=== PATIENT | male | born 1995 | race African-American/Black ===

== ENCOUNTER 2016-05-09 03:53 | Emergency (ER) | payer MEDICAID ==
[~2016-05-09] VITALS: Ht 170.2 cm; Wt 63.5 kg
[2016-05-09 04:10] VITALS: BP 137/81
== END 2016-05-09 10:35 | disposition left against medical advice (07) ==
LOC: ER 03:57
DX: R05 Cough (principal); R09.81 Nasal congestion; Z53.21 Procedure and treatment not carried out due to patient leaving prior to being seen by health care provider

== ENCOUNTER 2016-05-22 12:11 | Emergency (ER) | payer MEDICAID ==
[~2016-05-22] VITALS: Ht 170.2 cm; Wt 63.5 kg
[2016-05-22 12:23] VITALS: BP 140/76
== END 2016-05-22 13:34 | disposition home or self-care (01) ==
LOC: ER 12:15
DX: F41.9 Anxiety disorder, unspecified (principal); F17.210 Nicotine dependence, cigarettes, uncomplicated; F12.10 Cannabis abuse, uncomplicated; R05 Cough

== ENCOUNTER 2016-05-28 13:29 | Emergency (ER) | payer MEDICAID ==
[~2016-05-28] VITALS: Ht 170.2 cm; Wt 64.4 kg
[2016-05-28 13:45] VITALS: BP 133/83
== END 2016-05-28 17:51 | disposition home or self-care (01) ==
LOC: ER 13:31
DX: J20.9 Acute bronchitis, unspecified (principal); F17.210 Nicotine dependence, cigarettes, uncomplicated; F12.10 Cannabis abuse, uncomplicated
CPT/HCPCS: 71020

== ENCOUNTER 2016-06-02 01:15 | Emergency (ER) | payer MEDICAID ==
[~2016-06-02] VITALS: Ht 170.2 cm; Wt 63.5 kg
[2016-06-02 08:09] VITALS: BP 132/72
[2016-06-02] MEDS ORDERED: HYDROcodone-ACET 5/325MG TAB PO ONE (09:00)
== END 2016-06-02 10:19 | disposition home or self-care (01) ==
LOC: ER 01:19
DX: F41.9 Anxiety disorder, unspecified (principal); M54.9 Dorsalgia, unspecified; F17.210 Nicotine dependence, cigarettes, uncomplicated; F12.10 Cannabis abuse, uncomplicated; Z76.0 Encounter for issue of repeat prescription

== ENCOUNTER 2016-06-19 15:52 | Emergency (ER) | payer MEDICAID ==
[~2016-06-19] VITALS: Ht 170.2 cm; Wt 63.5 kg
[2016-06-19 16:56] VITALS: BP 137/91
== END 2016-06-19 17:45 | disposition home or self-care (01) ==
LOC: ER 15:59
DX: J02.9 Acute pharyngitis, unspecified (principal); F17.210 Nicotine dependence, cigarettes, uncomplicated; F12.10 Cannabis abuse, uncomplicated

== ENCOUNTER 2016-06-20 10:12 | Emergency (ER) | payer MEDICAID ==
[~2016-06-20] VITALS: Ht 170.2 cm; Wt 63.5 kg
[2016-06-20 10:17] VITALS: BP 143/102
== END 2016-06-20 11:30 | disposition home or self-care (01) ==
LOC: ER 10:14
DX: Z76.5 Malingerer [conscious simulation] (principal); R05 Cough; F41.9 Anxiety disorder, unspecified; F17.210 Nicotine dependence, cigarettes, uncomplicated; F12.10 Cannabis abuse, uncomplicated

== ENCOUNTER → 2016-06-20 | Emergency (ER) | payer MEDICAID | END | disposition left against medical advice (07) | LOC: ER 01:47 | DX: R09.81 Nasal congestion (principal); R05 Cough; Z53.21 Procedure and treatment not carried out due to patient leaving prior to being seen by health care provider ==

== ENCOUNTER 2016-06-25 13:56 | Emergency (ER) | payer MEDICAID ==
[~2016-06-25] VITALS: Ht 170.2 cm; Wt 63.5 kg
[2016-06-25 14:44] VITALS: BP 134/95
== END 2016-06-25 22:50 | disposition left against medical advice (07) ==
LOC: ER 13:56
DX: R10.10 Upper abdominal pain, unspecified (principal); R11.2 Nausea with vomiting, unspecified; Z53.21 Procedure and treatment not carried out due to patient leaving prior to being seen by health care provider

== ENCOUNTER 2016-06-26 11:01 | Emergency (ER) | payer MEDICAID ==
[~2016-06-26] VITALS: Ht 172.7 cm; Wt 63.5 kg
[2016-06-26 12:45] VITALS: BP 147/79
== END 2016-06-26 13:24 | disposition home or self-care (01) ==
LOC: ER 11:02
DX: M79.642 Pain in left hand (principal); M79.641 Pain in right hand; F17.210 Nicotine dependence, cigarettes, uncomplicated; F12.10 Cannabis abuse, uncomplicated; Z76.5 Malingerer [conscious simulation]; F11.10 Opioid abuse, uncomplicated; F19.10 Other psychoactive substance abuse, uncomplicated
CPT/HCPCS: 73130

== ENCOUNTER 2016-07-02 19:05 | Emergency (ER) | payer MEDICAID ==
[~2016-07-02] VITALS: Ht 172.7 cm; Wt 63.5 kg
[2016-07-02 21:20] VITALS: BP 142/88
== END 2016-07-02 21:22 | disposition home or self-care (01) ==
LOC: ER 19:11
DX: F41.9 Anxiety disorder, unspecified (principal); Z76.0 Encounter for issue of repeat prescription; F17.210 Nicotine dependence, cigarettes, uncomplicated; F12.10 Cannabis abuse, uncomplicated

== ENCOUNTER 2016-07-10 19:31 | Emergency (ER) | payer MEDICAID ==
[~2016-07-10] VITALS: Ht 170.2 cm; Wt 63.5 kg
[2016-07-10 20:00] VITALS: BP 139/85
[2016-07-10 20:41] LABS: Urine RBC None Seen /hpf (0 - 3)
[2016-07-10 21:00] LABS: Hematocrit 40.8 % (41.0-53.0); Hemoglobin 13.6 g/dL (13.5-17.5); Mean Corpuscular Hemoglobin 29.4 pg (28.0-32.0); Mean Corpuscular Hgb Conc. 33.3 g/dL (32.0-36.0); Mean Corpuscular Volume 88.3 fL (80.0-100.0); Mean Platelet Volume 9.1 fL (7.4-10.4); Platelet Count (auto) 170 10^3/uL (140-450); Red Cell Distribution Width 13.2 % (11.6-16.0); SUSPECT VIEW TRANSMISSION; White Blood Cell 5.8 10^3/uL (4.4-10.8)
[2016-07-10 21:00] LABS: Urine Bilirubin Negative (Negative); Urine Blood Negative /uL (Negative); Urine Color Yellow (Yellow); Urine Glucose Normal (Normal); Urine Ketone Negative (Negative); Urine Nitrite Negative (Negative); Urine Urobilinogen Normal (Negative)
[2016-07-10 21:10] LABS: Albumin 4.1 g/dL (3.4-5.0); Calcium 8.5 mg/dL (8.5-10.1); Potassium 3.7 mmol/L (3.5-5.1)
[2016-07-10 21:12] LABS: BUN/Creatinine Ratio 13.2
[2016-07-10 21:14] LABS: Bilirubin, Total 0.8 mg/dL (0.2-1.0); Total Protein 6.8 g/dL (6.4-8.2)
[2016-07-10 21:31] LABS: Metamyelocytes % 0; Myelocytes % 0; Promyelocytes % 0; Reactive Lymphocytes 0
[2016-07-10 21:44] LABS: Large Platelets FEW
[2016-07-10 21:45] LABS: Platelet Estimate Adequa
== END 2016-07-11 03:57 | disposition left against medical advice (07) ==
LOC: ER 19:35
DX: R10.9 Unspecified abdominal pain (principal); H92.03 Otalgia, bilateral; R11.10 Vomiting, unspecified; Z53.21 Procedure and treatment not carried out due to patient leaving prior to being seen by health care provider
CPT/HCPCS: 36415; 80053; 81001; 85007; 85027

== ENCOUNTER 2016-07-21 07:36 | Emergency (ER) | payer MEDICAID ==
[~2016-07-21] VITALS: Ht 170.2 cm; Wt 63.5 kg
[2016-07-21 07:55] VITALS: BP 139/85
== END 2016-07-21 09:11 | disposition home or self-care (01) ==
LOC: ER 07:36
DX: F41.9 Anxiety disorder, unspecified (principal); Z76.0 Encounter for issue of repeat prescription; R05 Cough

== ENCOUNTER 2016-07-22 00:34 | Emergency (ER) | payer MEDICAID ==
[~2016-07-22] VITALS: Ht 170.2 cm; Wt 68.0 kg
[2016-07-22 01:02] VITALS: BP 124/81
== END 2016-07-22 03:30 | disposition left against medical advice (07) ==
LOC: ER 00:35
DX: G43.909 Migraine, unspecified, not intractable, without status migrainosus (principal); Z53.21 Procedure and treatment not carried out due to patient leaving prior to being seen by health care provider

== ENCOUNTER → 2016-07-23 | Emergency (ER) | payer MEDICAID | END | disposition left against medical advice (07) | LOC: ER 00:24 | DX: R51 Headache (principal); Z53.21 Procedure and treatment not carried out due to patient leaving prior to being seen by health care provider ==

== ENCOUNTER 2016-07-27 17:16 | Emergency (ER) | payer MEDICAID ==
[~2016-07-27] VITALS: Ht 170.2 cm; Wt 63.5 kg
[2016-07-27 17:29] VITALS: BP 126/88
== END 2016-07-27 19:25 | disposition left against medical advice (07) ==
LOC: ER 17:22
DX: G43.909 Migraine, unspecified, not intractable, without status migrainosus (principal); Z53.21 Procedure and treatment not carried out due to patient leaving prior to being seen by health care provider

== ENCOUNTER 2016-07-28 13:53 | Emergency (ER) | payer MEDICAID ==
[~2016-07-28] VITALS: Ht 170.2 cm; Wt 63.5 kg
[2016-07-28 18:48] VITALS: BP 121/81
[2016-07-28] MEDS ORDERED: HYDROcodone-ACET 5/325MG TAB PO ONE (19:00)
[2016-07-28] MEDS ORDERED: ONDANSETRON ODT 4 MG TAB PO ONE (19:00)
== END 2016-07-28 19:06 | disposition home or self-care (01) ==
LOC: ER 13:53
DX: R51 Headache (principal); F17.210 Nicotine dependence, cigarettes, uncomplicated; F12.10 Cannabis abuse, uncomplicated; R42 Dizziness and giddiness; R53.1 Weakness
CPT/HCPCS: 99283; Q0162

== ENCOUNTER 2016-08-11 18:07 | Emergency (ER) | payer MEDICAID ==
[~2016-08-11] VITALS: Ht 170.2 cm; Wt 65.8 kg
[2016-08-11 19:58] VITALS: BP 116/77
== END 2016-08-11 21:09 | disposition home or self-care (01) ==
LOC: ER 18:11
DX: J42 Unspecified chronic bronchitis (principal); F17.210 Nicotine dependence, cigarettes, uncomplicated; F12.10 Cannabis abuse, uncomplicated

== ENCOUNTER → 2016-08-12 | Emergency (ER) | payer MEDICAID | END | disposition left against medical advice (07) | LOC: ER 22:38 | DX: R05 Cough (principal); Z53.21 Procedure and treatment not carried out due to patient leaving prior to being seen by health care provider ==

== ENCOUNTER 2016-08-13 01:58 | Emergency (ER) | payer MEDICAID | END 2016-08-13 02:09 | disposition left against medical advice (07) | LOC: ER 02:04 | DX: R05 Cough (principal); Z53.21 Procedure and treatment not carried out due to patient leaving prior to being seen by health care provider ==

== ENCOUNTER 2016-08-26 01:43 | Emergency (ER) | payer MEDICAID ==
[~2016-08-26] VITALS: Ht 170.2 cm; Wt 65.8 kg
[2016-08-26 03:23] VITALS: BP 115/69
== END 2016-08-26 03:33 | disposition home or self-care (01) ==
LOC: ER 01:44
DX: J20.9 Acute bronchitis, unspecified (principal); F17.210 Nicotine dependence, cigarettes, uncomplicated; F12.10 Cannabis abuse, uncomplicated; Z72.89 Other problems related to lifestyle

== ENCOUNTER → 2016-08-28 | Emergency (ER) | payer MEDICAID | END | disposition left against medical advice (07) | LOC: ER 01:18 | DX: R10.9 Unspecified abdominal pain (principal); Z53.21 Procedure and treatment not carried out due to patient leaving prior to being seen by health care provider ==

== ENCOUNTER 2016-09-01 01:33 | Emergency (ER) | payer MEDICAID ==
[~2016-09-01] VITALS: Ht 170.2 cm; Wt 54.4 kg
[2016-09-01 01:55] VITALS: BP 111/74
== END 2016-09-01 01:58 | disposition left against medical advice (07) ==
LOC: ER 01:41

== ENCOUNTER 2016-09-15 00:23 | Emergency (ER) | payer MEDICAID ==
[~2016-09-15] VITALS: Ht 170.2 cm; Wt 65.8 kg
[2016-09-15 01:29] LABS: Basophils # (auto) 0 uL; Basophils % (auto) 0.6 % (0.0-2.0); Eosinophils # (auto) 0.1 uL; Eosinophils % (auto) 1.3 % (0.0-7.0); Hematocrit 40.3 % (41.0-53.0); Hemoglobin 13.8 g/dL (13.5-17.5); Lymphocytes # (auto) 2.5 uL; Lymphocytes % (auto) 47.8 % (10.0-50.0); Mean Corpuscular Hemoglobin 29.8 pg (28.0-32.0); Mean Corpuscular Hgb Conc. 34.2 g/dL (32.0-36.0); Mean Corpuscular Volume 87.1 fL (80.0-100.0); Mean Platelet Volume 9.5 fL (7.4-10.4); Monocytes # (auto) 0.4 uL; Monocytes % (auto) 8.1 % (0.0-12.0); Neutrophils # (auto) 2.2 uL; Neutrophils % (auto) 42.2 % (37.0-80.0); Platelet Count (auto) 174 10^3/uL (140-450); SUSPECT VIEW TRANSMISSION; White Blood Cell 5.2 10^3/uL (4.4-10.8)
[2016-09-15 01:40] LABS: Albumin 4.3 g/dL (3.4-5.0); Anion Gap 7 (5-15); Aspartate Aminotransferase 16 U/L (15-37); BUN/Creatinine Ratio 9.5; Blood Urea Nitrogen 11 mg/dL (7-18); Calcium 8.2 mg/dL (8.5-10.1); Carbon Dioxide 27 mmol/L (21-32); Chloride 112 mmol/L (98-107); GFR African American 101 mL/min; GFR Non-African American 84 mL/min; Glucose 112 mg/dL (74-106); Magnesium 2.1 mg/dL (1.6-2.6); Potassium 3.7 mmol/L (3.5-5.1); Sodium 146 mmol/L (136-145)
[2016-09-15 01:43] LABS: Alkaline Phosphatase 60 U/L (45-117); Bilirubin, Total 1.6 mg/dL (0.2-1.0); Total Protein 6.7 g/dL (6.4-8.2)
[2016-09-15 01:50] LABS: Acetaminophen < 2.0 ug/mL (10-30)
[2016-09-15 01:52] LABS: Salicylate < 0.2 mg/dL (2.8-20.0)
[2016-09-15 02:17] LABS: Urine RBC None Seen /hpf (0 - 3)
[2016-09-15 02:19] VITALS: BP 127/77
[2016-09-15 02:25] LABS: Urine Bilirubin Negative (Negative); Urine Blood Negative /uL (Negative); Urine Color Yellow (Yellow); Urine Glucose Normal (Normal); Urine Ketone Negative (Negative); Urine Nitrite Negative (Negative); Urine pH 7.5 (5.0-8.0)
[2016-09-15] MEDS ORDERED: LORazepam 0.5 MG TAB PO ONE (04:00)
[2016-09-15] MEDS ORDERED: ALUM & MAG HYDROX-SIMETH LIQ(MAALOX) 30 ML PO ONE (04:00)
== END 2016-09-15 05:11 | disposition home or self-care (01) ==
LOC: ER 00:23
DX: K29.00 Acute gastritis without bleeding (principal); F12.10 Cannabis abuse, uncomplicated; F17.210 Nicotine dependence, cigarettes, uncomplicated; F41.9 Anxiety disorder, unspecified
CPT/HCPCS: 36415; 80053; 80307; 80320; 80329; 81001; 83735; 85025

== ENCOUNTER 2016-09-24 18:49 | Emergency (ER) | payer MEDICAID ==
[~2016-09-24] VITALS: Ht 170.2 cm; Wt 65.8 kg
[2016-09-24 19:41] VITALS: BP 141/74
== END 2016-09-24 19:57 | disposition left against medical advice (07) ==
LOC: ER 18:54
DX: F41.9 Anxiety disorder, unspecified (principal); Z76.0 Encounter for issue of repeat prescription

== ENCOUNTER 2016-10-05 02:59 | Emergency (ER) | payer MEDICAID ==
[~2016-10-05] VITALS: Ht 170.2 cm; Wt 65.8 kg
[2016-10-05 03:20] VITALS: BP 149/90
== END 2016-10-05 06:03 | disposition home or self-care (01) ==
LOC: ER 02:59
DX: R05 Cough (principal); R07.0 Pain in throat; R06.02 Shortness of breath; F11.10 Opioid abuse, uncomplicated; F17.210 Nicotine dependence, cigarettes, uncomplicated; F12.10 Cannabis abuse, uncomplicated

== ENCOUNTER 2016-10-22 18:31 | Emergency (ER) | payer MEDICAID ==
[~2016-10-22] VITALS: Ht 170.2 cm; Wt 63.5 kg
[2016-10-22 19:35] VITALS: BP 125/83
== END 2016-10-22 20:21 | disposition home or self-care (01) ==
LOC: ER 18:42
DX: J42 Unspecified chronic bronchitis (principal); F17.210 Nicotine dependence, cigarettes, uncomplicated; F12.10 Cannabis abuse, uncomplicated

== ENCOUNTER 2016-10-23 16:15 | Emergency (ER) | payer MEDICAID ==
[~2016-10-23] VITALS: Ht 170.2 cm; Wt 63.5 kg
[2016-10-23 16:36] VITALS: BP 132/72
== END 2016-10-23 17:32 | disposition left against medical advice (07) ==
LOC: ER 16:19
DX: F41.9 Anxiety disorder, unspecified (principal); Z53.21 Procedure and treatment not carried out due to patient leaving prior to being seen by health care provider

== ENCOUNTER 2016-11-08 00:06 | Emergency (ER) | payer MEDICAID | END 2016-11-08 00:30 | disposition left against medical advice (07) | LOC: ER 00:06 | DX: R05 Cough (principal); Z53.21 Procedure and treatment not carried out due to patient leaving prior to being seen by health care provider ==

== ENCOUNTER 2016-11-11 17:25 | Emergency (ER) | payer MEDICAID ==
[~2016-11-11] VITALS: Ht 170.2 cm; Wt 63.5 kg
[2016-11-11 18:16] VITALS: BP 131/77
== END 2016-11-11 22:14 | disposition left against medical advice (07) ==
LOC: ER 17:27
DX: F41.9 Anxiety disorder, unspecified (principal); Z76.0 Encounter for issue of repeat prescription; Z53.21 Procedure and treatment not carried out due to patient leaving prior to being seen by health care provider

== ENCOUNTER 2016-11-13 00:04 | Emergency (ER) | payer MEDICAID ==
[~2016-11-13] VITALS: Ht 170.2 cm; Wt 65.8 kg
[2016-11-13 00:11] VITALS: BP 121/90
== END 2016-11-13 01:13 | disposition home or self-care (01) ==
LOC: ER 00:09
DX: F41.9 Anxiety disorder, unspecified (principal); T65.91XA Toxic effect of unspecified substance, accidental (unintentional), initial encounter; F17.210 Nicotine dependence, cigarettes, uncomplicated; F12.10 Cannabis abuse, uncomplicated; Y92.89 Other specified places as the place of occurrence of the external cause

== ENCOUNTER 2016-11-15 08:51 | Emergency (ER) | payer MEDICAID ==
[~2016-11-15] VITALS: Ht 170.2 cm; Wt 65.8 kg
[2016-11-15 09:25] VITALS: BP 129/84
== END 2016-11-15 09:38 | disposition home or self-care (01) ==
LOC: ER 08:51
DX: F41.9 Anxiety disorder, unspecified (principal); R05 Cough; F17.210 Nicotine dependence, cigarettes, uncomplicated; F12.10 Cannabis abuse, uncomplicated; Z76.0 Encounter for issue of repeat prescription

== ENCOUNTER 2016-11-16 05:23 | Emergency (ER) | payer MEDICAID ==
[~2016-11-16] VITALS: Ht 170.2 cm; Wt 65.3 kg
[2016-11-16 05:49] VITALS: BP 142/80
== END 2016-11-16 08:22 | disposition home or self-care (01) ==
LOC: ER 05:23
DX: R05 Cough (principal); F41.9 Anxiety disorder, unspecified; F12.10 Cannabis abuse, uncomplicated; F17.210 Nicotine dependence, cigarettes, uncomplicated

== ENCOUNTER 2016-11-16 23:46 | Emergency (ER) | payer MEDICAID ==
[~2016-11-16] VITALS: Ht 170.2 cm; Wt 63.5 kg
[2016-11-17] VITALS: BP 125/71
== END 2016-11-17 00:42 | disposition left against medical advice (07) ==
LOC: ER 23:46
DX: R05 Cough (principal); F17.210 Nicotine dependence, cigarettes, uncomplicated; F12.10 Cannabis abuse, uncomplicated

== ENCOUNTER 2016-11-17 20:27 | Emergency (ER) | payer MEDICAID ==
[~2016-11-17] VITALS: Ht 170.2 cm; Wt 65.8 kg
[2016-11-17 22:10] VITALS: BP 130/74
== END 2016-11-17 23:17 | disposition home or self-care (01) ==
LOC: ER 20:39
DX: J42 Unspecified chronic bronchitis (principal); Z76.5 Malingerer [conscious simulation]; F17.210 Nicotine dependence, cigarettes, uncomplicated; F12.10 Cannabis abuse, uncomplicated

== ENCOUNTER 2016-12-04 12:34 | Emergency (ER) | payer MEDICAID ==
[~2016-12-04] VITALS: Ht 170.2 cm; Wt 65.8 kg
[2016-12-04 14:35] VITALS: BP 140/71
== END 2016-12-04 14:44 | disposition home or self-care (01) ==
LOC: ER 12:38
DX: F41.9 Anxiety disorder, unspecified (principal); Z76.0 Encounter for issue of repeat prescription; F17.210 Nicotine dependence, cigarettes, uncomplicated; F12.10 Cannabis abuse, uncomplicated

== ENCOUNTER 2016-12-10 15:33 | Emergency (ER) | payer MEDICAID ==
[~2016-12-10] VITALS: Ht 170.2 cm; Wt 65.8 kg
[2016-12-10 16:26] VITALS: BP 140/74
== END 2016-12-10 17:19 | disposition home or self-care (01) ==
LOC: ER 15:39
DX: K21.9 Gastro-esophageal reflux disease without esophagitis (principal); F12.10 Cannabis abuse, uncomplicated; F17.210 Nicotine dependence, cigarettes, uncomplicated; Z76.0 Encounter for issue of repeat prescription

== ENCOUNTER 2016-12-13 07:21 | Emergency (ER) | payer MEDICAID ==
[~2016-12-13] VITALS: Ht 170.2 cm; Wt 63.5 kg
[2016-12-13 08:25] VITALS: BP 140/83
== END 2016-12-13 08:37 | disposition home or self-care (01) ==
LOC: ER 07:21
DX: R05 Cough (principal); F19.10 Other psychoactive substance abuse, uncomplicated; R07.9 Chest pain, unspecified; J40 Bronchitis, not specified as acute or chronic; K21.9 Gastro-esophageal reflux disease without esophagitis; F17.210 Nicotine dependence, cigarettes, uncomplicated; F12.10 Cannabis abuse, uncomplicated

== ENCOUNTER 2016-12-27 16:30 | Emergency (ER) | payer MEDICAID ==
[~2016-12-27] VITALS: Ht 170.2 cm; Wt 63.5 kg
[2016-12-27 16:47] VITALS: BP 142/91
[2016-12-27 17:44] LABS: Basophils # (auto) 0.1 uL; Basophils % (auto) 1.3 % (0.0-2.0); CONDITION Y; Eosinophils # (auto) 0.1 uL; Eosinophils % (auto) 1.2 % (0.0-7.0); Hematocrit 44.8 % (41.0-53.0); Hemoglobin 15.2 g/dL (13.5-17.5); Lymphocytes # (auto) 2.2 uL; Lymphocytes % (auto) 46.9 % (10.0-50.0); Mean Corpuscular Hemoglobin 29.8 pg (28.0-32.0); Mean Corpuscular Hgb Conc. 33.9 g/dL (32.0-36.0); Mean Corpuscular Volume 87.8 fL (80.0-100.0); Mean Platelet Volume 9.1 fL (7.4-10.4); Monocytes # (auto) 0.4 uL; Monocytes % (auto) 8.1 % (0.0-12.0); Neutrophils % (auto) 42.5 % (37.0-80.0); Platelet Count (auto) 194 10^3/uL (140-450); Red Cell Distribution Width 12.6 % (11.6-16.0); SUSPECT SEE PRINTOUT; White Blood Cell 4.7 10^3/uL (4.4-10.8)
[2016-12-27 17:58] LABS: Albumin 4.4 g/dL (3.4-5.0); BUN/Creatinine Ratio 10.6; Calcium 8.9 mg/dL (8.5-10.1); Potassium 3.6 mmol/L (3.5-5.1)
[2016-12-27 18:01] LABS: Bilirubin, Total 1.3 mg/dL (0.2-1.0); Total Protein 7.6 g/dL (6.4-8.2)
== END 2016-12-27 22:48 | disposition left against medical advice (07) ==
LOC: ER 16:35
DX: R11.2 Nausea with vomiting, unspecified (principal); Z53.21 Procedure and treatment not carried out due to patient leaving prior to being seen by health care provider
CPT/HCPCS: 36415; 80053; 85025

== ENCOUNTER 2017-02-08 22:48 | Emergency (ER) | payer MEDICAID ==
[~2017-02-08] VITALS: Ht 170.2 cm; Wt 63.5 kg
[2017-02-08 23:05] VITALS: BP 132/71
== END 2017-02-09 01:30 | disposition left against medical advice (07) ==
LOC: ER 22:57
DX: R05 Cough (principal); Z53.21 Procedure and treatment not carried out due to patient leaving prior to being seen by health care provider

== ENCOUNTER 2017-02-18 18:51 | Emergency (ER) | payer MEDICAID ==
[~2017-02-18] VITALS: Ht 170.2 cm; Wt 65.8 kg
[2017-02-18 19:05] VITALS: BP 131/69
== END 2017-02-19 03:33 | disposition left against medical advice (07) ==
LOC: ER 18:59
DX: H92.09 Otalgia, unspecified ear (principal); Z53.21 Procedure and treatment not carried out due to patient leaving prior to being seen by health care provider

== ENCOUNTER 2017-02-19 13:10 | Emergency (ER) | payer MEDICAID ==
[~2017-02-19] VITALS: Ht 170.2 cm; Wt 65.8 kg
[2017-02-19 14:38] VITALS: BP 135/75
== END 2017-02-19 14:47 | disposition home or self-care (01) ==
LOC: ER 13:12
DX: H66.91 Otitis media, unspecified, right ear (principal); K21.9 Gastro-esophageal reflux disease without esophagitis; F17.210 Nicotine dependence, cigarettes, uncomplicated; F12.10 Cannabis abuse, uncomplicated

== ENCOUNTER 2017-02-27 04:06 | Emergency (ER) | payer MEDICAID ==
[2017-02-27 04:16] VITALS: BP 159/96
== END 2017-02-27 06:52 | disposition home or self-care (01) ==
LOC: ER 04:06
DX: H66.91 Otitis media, unspecified, right ear (principal); F17.210 Nicotine dependence, cigarettes, uncomplicated; K21.9 Gastro-esophageal reflux disease without esophagitis

== ENCOUNTER 2017-03-16 16:40 | Emergency (ER) | payer MEDICAID ==
[~2017-03-16] VITALS: Ht 170.2 cm; Wt 65.8 kg
[2017-03-16 19:00] VITALS: BP 135/86
== END 2017-03-16 19:28 | disposition home or self-care (01) ==
LOC: ER 16:41
DX: J06.9 Acute upper respiratory infection, unspecified (principal); K21.9 Gastro-esophageal reflux disease without esophagitis; J45.909 Unspecified asthma, uncomplicated; F17.210 Nicotine dependence, cigarettes, uncomplicated

== ENCOUNTER 2017-03-24 14:02 | Emergency (ER) | payer MEDICAID ==
[~2017-03-24] VITALS: Ht 170.2 cm; Wt 65.8 kg
[2017-03-24 14:34] VITALS: BP 141/92
== END 2017-03-24 14:50 | disposition home or self-care (01) ==
LOC: ER 14:02
DX: H66.92 Otitis media, unspecified, left ear (principal); R05 Cough; K21.9 Gastro-esophageal reflux disease without esophagitis; F17.210 Nicotine dependence, cigarettes, uncomplicated

== ENCOUNTER 2017-03-26 21:19 | Emergency (ER) | payer MEDICAID ==
[~2017-03-26] VITALS: Ht 170.2 cm; Wt 64.4 kg
[2017-03-27 00:04] VITALS: BP 128/79
[2017-03-27] MEDS ORDERED: LIDOCAINE 1% HCL (LOCAL ANESTH.) INJ 20ML MDV ONE (01:26)
[2017-03-27] MEDS ORDERED: HYDROcodone-ACET 5/325MG TAB PO ONE (01:45)
[2017-03-27] MEDS ORDERED: LIDOCAINE 1% HCL (LOCAL ANESTH.) INJ 20ML MDV IJ ONE (01:45)
== END 2017-03-27 01:55 | disposition home or self-care (01) ==
LOC: ER 21:19
DX: S60.032A Contusion of left middle finger without damage to nail, initial encounter (principal); L03.012 Cellulitis of left finger; F17.210 Nicotine dependence, cigarettes, uncomplicated; F12.10 Cannabis abuse, uncomplicated; K21.9 Gastro-esophageal reflux disease without esophagitis; W23.0XXA Caught, crushed, jammed, or pinched between moving objects, initial encounter; Y93.89 Activity, other specified; Y99.8 Other external cause status; Y92.89 Other specified places as the place of occurrence of the external cause
CPT/HCPCS: 10060; 73140; 99284; J2001

== ENCOUNTER 2017-03-27 07:22 | Emergency (ER) | payer MEDICAID ==
[~2017-03-27] VITALS: Ht 170.2 cm; Wt 65.8 kg
[2017-03-27 08:02] VITALS: BP 138/100
== END 2017-03-27 08:25 | disposition home or self-care (01) ==
LOC: ER 07:22
DX: R05 Cough (principal); F17.210 Nicotine dependence, cigarettes, uncomplicated; F12.10 Cannabis abuse, uncomplicated; K21.9 Gastro-esophageal reflux disease without esophagitis

== ENCOUNTER 2017-03-28 12:15 | Emergency (ER) | payer MEDICAID ==
[~2017-03-28] VITALS: Ht 170.2 cm; Wt 65.8 kg
[2017-03-28 13:00] VITALS: BP 144/81
== END 2017-03-28 13:42 | disposition home or self-care (01) ==
LOC: ER 12:15
DX: R05 Cough (principal); F11.10 Opioid abuse, uncomplicated; H92.01 Otalgia, right ear; F17.210 Nicotine dependence, cigarettes, uncomplicated; K21.9 Gastro-esophageal reflux disease without esophagitis

== ENCOUNTER 2017-04-10 13:39 | Emergency (ER) | payer MEDICAID ==
[~2017-04-10] VITALS: Ht 170.2 cm; Wt 63.5 kg
[2017-04-10 14:04] VITALS: BP 122/80
== END 2017-04-10 14:30 | disposition home or self-care (01) ==
LOC: ER 13:39
DX: J02.9 Acute pharyngitis, unspecified (principal); Z76.5 Malingerer [conscious simulation]; K21.9 Gastro-esophageal reflux disease without esophagitis; F17.210 Nicotine dependence, cigarettes, uncomplicated

== ENCOUNTER 2017-06-08 10:37 | Emergency (ER) | payer MEDICAID ==
[~2017-06-08] VITALS: Ht 170.2 cm; Wt 62.1 kg
[2017-06-08 10:41] VITALS: BP 137/94
== END 2017-06-08 12:04 | disposition left against medical advice (07) ==
LOC: ER 10:37
DX: S60.051A Contusion of right little finger without damage to nail, initial encounter (principal); F17.210 Nicotine dependence, cigarettes, uncomplicated; K21.9 Gastro-esophageal reflux disease without esophagitis; X58.XXXA Exposure to other specified factors, initial encounter; Y93.67 Activity, basketball; Y92.89 Other specified places as the place of occurrence of the external cause; Y99.8 Other external cause status

== ENCOUNTER 2017-06-21 01:43 | Emergency (ER) | payer MEDICAID ==
[~2017-06-21] VITALS: Ht 170.2 cm; Wt 63.5 kg
[2017-06-21] MEDS ORDERED: MORPHINE SULFATE 4 MG/ML SYR/VIAL IV ONE (02:15)
[2017-06-21] MEDS ORDERED: ASPirin 81 mg TAB PO ONE (02:15)
[2017-06-21] MEDS ORDERED: NITROGLYCERIN 2% OINT 1GM PKG TD ONE (02:15)
[2017-06-21 02:38] LABS: Basophils # (auto) 0.1 uL; Basophils % (auto) 1.2 % (0.0-2.0); Eosinophils # (auto) 0.1 uL; Eosinophils % (auto) 1.1 % (0.0-7.0); Hematocrit 41.7 % (41.0-53.0); Hemoglobin 14.4 g/dL (13.5-17.5); Lymphocytes % (auto) 40.6 % (10.0-50.0); Mean Corpuscular Hemoglobin 29.6 pg (28.0-32.0); Mean Corpuscular Hgb Conc. 34.5 g/dL (32.0-36.0); Mean Corpuscular Volume 85.8 fL (80.0-100.0); Monocytes # (auto) 0.5 uL; Monocytes % (auto) 9.4 % (0.0-12.0); Neutrophils # (auto) 2.4 uL; Neutrophils % (auto) 47.7 % (37.0-80.0); Nucleated Red Blood Cells % 0.1 %; Platelet Count (auto) 166 10^3/uL (140-450); Red Blood Cells 4.86 10^6/uL (4.5-5.90)
[2017-06-21 02:44] LABS: Alanine Aminotransferase 32 U/L (16-61); Anion Gap 8 (5-15); Aspartate Aminotransferase 19 U/L (15-37); BUN/Creatinine Ratio 11.5; Blood Urea Nitrogen 14 mg/dL (7-18); Calcium 8.9 mg/dL (8.5-10.1); Carbon Dioxide 26 mmol/L (21-32); Chloride 108 mmol/L (98-107); GFR African American 96 mL/min; GFR Non-African American 79 mL/min; Glucose 85 mg/dL (74-106); Potassium 3.6 mmol/L (3.5-5.1); Sodium 142 mmol/L (136-145)
[2017-06-21 02:49] LABS: Alkaline Phosphatase 54 U/L (45-117); Bilirubin, Total 1.4 mg/dL (0.2-1.0); Total Protein 6.8 g/dL (6.4-8.2)
[2017-06-21] MEDS ORDERED: PROMETHAZINE HCL 25 MG/ML 1ML IV ONE (03:00)
[2017-06-21 03:32] VITALS: BP 132/78
== END 2017-06-21 03:31 | disposition home or self-care (01) ==
LOC: ER 01:43
DX: R07.89 Other chest pain (principal); F41.9 Anxiety disorder, unspecified; K21.9 Gastro-esophageal reflux disease without esophagitis; F17.210 Nicotine dependence, cigarettes, uncomplicated
CPT/HCPCS: 36415; 71045; 80053; 84484; 85025; 93005; 96374; 99285; J2550

== ENCOUNTER 2017-07-29 11:10 | Emergency (ER) | payer MEDICAID ==
[~2017-07-29] VITALS: Ht 170.2 cm; Wt 63.5 kg
[2017-07-29 13:14] VITALS: BP 141/96
== END 2017-07-29 14:31 | disposition home or self-care (01) ==
LOC: ER 11:10
DX: J20.9 Acute bronchitis, unspecified (principal); F41.9 Anxiety disorder, unspecified; K21.9 Gastro-esophageal reflux disease without esophagitis; F17.210 Nicotine dependence, cigarettes, uncomplicated; F12.10 Cannabis abuse, uncomplicated

== ENCOUNTER 2017-08-21 08:18 | Emergency (ER) | payer MEDICAID ==
[~2017-08-21] VITALS: Ht 170.2 cm; Wt 63.5 kg
[2017-08-21 08:32] VITALS: BP 132/82
== END 2017-08-21 09:22 | disposition home or self-care (01) ==
LOC: ER 08:18
DX: J03.90 Acute tonsillitis, unspecified (principal); K21.9 Gastro-esophageal reflux disease without esophagitis; F17.210 Nicotine dependence, cigarettes, uncomplicated; F12.10 Cannabis abuse, uncomplicated

== ENCOUNTER 2017-08-23 10:04 | Emergency (ER) | payer MEDICAID ==
[~2017-08-23] VITALS: Ht 170.2 cm; Wt 63.5 kg
[2017-08-23 10:56] VITALS: BP 128/88
[2017-08-23] MEDS ORDERED: LIDOCAINE 1% (LOCAL ANESTH.) PF 5ml SDV IJ ONE (11:45)
[2017-08-23] MEDS ORDERED: cefTRIAXone SOD 1,000 MG VL IM ONE (11:45)
== END 2017-08-23 12:07 | disposition home or self-care (01) ==
LOC: ER 10:04
DX: J02.9 Acute pharyngitis, unspecified (principal); K21.9 Gastro-esophageal reflux disease without esophagitis; F17.210 Nicotine dependence, cigarettes, uncomplicated; F12.10 Cannabis abuse, uncomplicated
CPT/HCPCS: 99283; J0696

== ENCOUNTER 2017-08-26 14:45 | Emergency (ER) | payer MEDICAID ==
[~2017-08-26] VITALS: Ht 170.2 cm; Wt 63.5 kg
[2017-08-26 18:13] VITALS: BP 130/80
== END 2017-08-26 22:36 | disposition left against medical advice (07) ==
LOC: ER 14:45
DX: J02.9 Acute pharyngitis, unspecified (principal); Z53.21 Procedure and treatment not carried out due to patient leaving prior to being seen by health care provider

== ENCOUNTER → 2017-09-05 | Emergency (ER) | payer MEDICAID | END | disposition left against medical advice (07) | LOC: ER 13:00 | DX: J02.9 Acute pharyngitis, unspecified (principal); Z53.21 Procedure and treatment not carried out due to patient leaving prior to being seen by health care provider ==

== ENCOUNTER 2017-09-06 14:13 | Emergency (ER) | payer MEDICAID ==
[~2017-09-06] VITALS: Ht 170.2 cm; Wt 63.5 kg
[2017-09-06 14:30] VITALS: BP 137/83
== END 2017-09-07 00:18 | disposition left against medical advice (07) ==
LOC: ER 14:13
DX: J02.9 Acute pharyngitis, unspecified (principal); Z53.21 Procedure and treatment not carried out due to patient leaving prior to being seen by health care provider

== ENCOUNTER 2017-09-25 14:27 | Emergency (ER) | payer MEDICAID ==
[~2017-09-25] VITALS: Ht 170.2 cm; Wt 63.5 kg
[2017-09-25 14:36] VITALS: BP 164/89
== END 2017-09-25 17:44 | disposition left against medical advice (07) ==
LOC: ER 14:33
DX: S62.665A Nondisplaced fracture of distal phalanx of left ring finger, initial encounter for closed fracture (principal); K21.9 Gastro-esophageal reflux disease without esophagitis; F17.210 Nicotine dependence, cigarettes, uncomplicated; Y04.0XXA Assault by unarmed brawl or fight, initial encounter; Y93.89 Activity, other specified; Y99.8 Other external cause status; Y92.89 Other specified places as the place of occurrence of the external cause
CPT/HCPCS: 29130; 73140

== ENCOUNTER 2017-10-31 14:29 | Emergency (ER) | payer MEDICAID ==
[~2017-10-31] VITALS: Ht 170.2 cm; Wt 63.5 kg
[2017-10-31 14:53] VITALS: BP 119/77
[2017-10-31] MEDS ORDERED: ALPRAZolam 0.5 MG TAB PO ONE (15:00)
== END 2017-10-31 15:17 | disposition home or self-care (01) ==
LOC: ER 14:39
DX: H92.03 Otalgia, bilateral (principal); F41.9 Anxiety disorder, unspecified; K21.9 Gastro-esophageal reflux disease without esophagitis; F17.210 Nicotine dependence, cigarettes, uncomplicated; F12.10 Cannabis abuse, uncomplicated

== ENCOUNTER 2017-11-02 11:40 | Emergency (ER) | payer MEDICAID ==
[~2017-11-02] VITALS: Ht 170.2 cm; Wt 63.5 kg
[2017-11-02 11:44] VITALS: BP 148/91
== END 2017-11-02 12:11 | disposition left against medical advice (07) ==
LOC: ER 11:40
DX: G89.29 Other chronic pain (principal); H92.03 Otalgia, bilateral; K21.9 Gastro-esophageal reflux disease without esophagitis; F17.210 Nicotine dependence, cigarettes, uncomplicated

== ENCOUNTER 2017-11-05 01:05 | Emergency (ER) | payer MEDICAID ==
[~2017-11-05] VITALS: Ht 170.2 cm; Wt 63.5 kg
[2017-11-05 01:15] VITALS: BP 134/82
== END 2017-11-05 03:45 | disposition left against medical advice (07) ==
LOC: ER 01:05
DX: H92.09 Otalgia, unspecified ear (principal); Z53.21 Procedure and treatment not carried out due to patient leaving prior to being seen by health care provider

== ENCOUNTER 2017-11-05 12:23 | Emergency (ER) | payer MEDICAID ==
[~2017-11-05] VITALS: Ht 170.2 cm; Wt 55.3 kg
[2017-11-05 12:32] VITALS: BP 149/104
== END 2017-11-05 13:26 | disposition left against medical advice (07) ==
LOC: ER 12:23
DX: F41.9 Anxiety disorder, unspecified (principal); Z53.21 Procedure and treatment not carried out due to patient leaving prior to being seen by health care provider

== ENCOUNTER 2017-11-06 06:04 | Emergency (ER) | payer MEDICAID ==
[~2017-11-06] VITALS: Ht 170.2 cm; Wt 63.5 kg
[2017-11-06 06:21] VITALS: BP 159/91
[2017-11-06] MEDS ORDERED: LORazepam 0.5 MG TAB PO ONE (07:15)
== END 2017-11-06 07:33 | disposition home or self-care (01) ==
LOC: ER 06:15
DX: F41.9 Anxiety disorder, unspecified (principal); J02.9 Acute pharyngitis, unspecified; K21.9 Gastro-esophageal reflux disease without esophagitis; F17.210 Nicotine dependence, cigarettes, uncomplicated; F12.10 Cannabis abuse, uncomplicated

== ENCOUNTER 2017-11-07 23:53 | Emergency (ER) | payer MEDICAID ==
[~2017-11-07] VITALS: Ht 170.2 cm; Wt 68.0 kg
[2017-11-08 03:53] VITALS: BP 116/68
== END 2017-11-08 05:24 | disposition left against medical advice (07) ==
LOC: ER 23:56
DX: F41.9 Anxiety disorder, unspecified (principal); Z53.21 Procedure and treatment not carried out due to patient leaving prior to being seen by health care provider

== ENCOUNTER 2018-01-13 22:12 | Emergency (ER) | payer MEDICAID ==
[~2018-01-13] VITALS: Ht 170.2 cm; Wt 63.6 kg
[2018-01-13 22:41] VITALS: BP 147/87
== END 2018-01-13 22:49 | disposition left against medical advice (07) ==
LOC: ER 22:17
DX: R51 Headache (principal); Z53.21 Procedure and treatment not carried out due to patient leaving prior to being seen by health care provider

== ENCOUNTER 2018-01-14 01:18 | Emergency (ER) | payer MEDICAID ==
[~2018-01-14] VITALS: Ht 170.2 cm; Wt 63.5 kg
[2018-01-14 01:49] VITALS: BP 162/86
== END 2018-01-14 06:31 | disposition left against medical advice (07) ==
LOC: ER 01:18
DX: R06.02 Shortness of breath (principal); Z53.21 Procedure and treatment not carried out due to patient leaving prior to being seen by health care provider

== ENCOUNTER 2019-03-05 08:58 | Emergency (ER) | payer SELFPAY ==
[~2019-03-05] VITALS: Ht 170.2 cm; Wt 63.5 kg
[2019-03-05 09:39] VITALS: BP 149/93
== END 2019-03-05 14:10 | disposition home or self-care (01) ==
LOC: ER 08:58
DX: R05 Cough (principal); R11.0 Nausea; K21.9 Gastro-esophageal reflux disease without esophagitis

== ENCOUNTER 2019-03-20 01:48 | Emergency (ER) | payer SELFPAY ==
[~2019-03-20] VITALS: Ht 170.2 cm; Wt 65.8 kg
[2019-03-20 02:03] VITALS: BP 149/90
== END 2019-03-20 04:12 | disposition home or self-care (01) ==
LOC: ER 01:54
DX: J02.9 Acute pharyngitis, unspecified (principal); K21.9 Gastro-esophageal reflux disease without esophagitis; F17.210 Nicotine dependence, cigarettes, uncomplicated

== ENCOUNTER 2019-04-28 22:23 | Emergency (ER) | payer SELFPAY ==
[~2019-04-28] VITALS: Ht 170.2 cm; Wt 63.5 kg
[2019-04-28 22:56] VITALS: BP 130/79
== END 2019-04-28 23:00 | disposition home or self-care (01) ==
LOC: ER 22:26
DX: J03.90 Acute tonsillitis, unspecified (principal)

== ENCOUNTER 2019-06-30 15:59 | Emergency (ER) | payer SELFPAY ==
[~2019-06-30] VITALS: Ht 170.2 cm; Wt 63.5 kg
[2019-06-30 19:11] VITALS: BP 120/74
== END 2019-06-30 19:28 | disposition home or self-care (01) ==
LOC: ER 15:59
DX: J03.90 Acute tonsillitis, unspecified (principal); F17.210 Nicotine dependence, cigarettes, uncomplicated; F12.10 Cannabis abuse, uncomplicated

== ENCOUNTER 2019-07-01 12:30 | Emergency (ER) | payer SELFPAY ==
[~2019-07-01] VITALS: Ht 170.2 cm; Wt 63.5 kg
[2019-07-01 12:58] VITALS: BP 112/60
== END 2019-07-01 13:03 | disposition home or self-care (01) ==
LOC: ER 12:30
DX: J02.9 Acute pharyngitis, unspecified (principal); F17.210 Nicotine dependence, cigarettes, uncomplicated; F12.10 Cannabis abuse, uncomplicated; K21.9 Gastro-esophageal reflux disease without esophagitis; Z88.8 Allergy status to other drugs, medicaments and biological substances

== ENCOUNTER 2019-07-04 23:33 | Emergency (ER) | payer SELFPAY ==
[~2019-07-04] VITALS: Ht 170.2 cm; Wt 63.5 kg
[2019-07-05 02:18] VITALS: BP 116/64
== END 2019-07-05 02:39 | disposition home or self-care (01) ==
LOC: ER 23:33
DX: J06.9 Acute upper respiratory infection, unspecified (principal)

== ENCOUNTER 2020-02-03 14:41 | Emergency (ER) | payer MEDICAID ==
[~2020-02-03] VITALS: Ht 170.2 cm; Wt 63.5 kg
[2020-02-03 14:47] VITALS: BP 127/82
== END 2020-02-03 16:47 | disposition left against medical advice (07) ==
LOC: ER 14:41
DX: M25.561 Pain in right knee (principal); R11.0 Nausea; K21.9 Gastro-esophageal reflux disease without esophagitis; F17.210 Nicotine dependence, cigarettes, uncomplicated; Z88.8 Allergy status to other drugs, medicaments and biological substances
CPT/HCPCS: 73564

== ENCOUNTER → 2020-05-14 | Emergency (ER) | payer SELFPAY | END | disposition left against medical advice (07) | LOC: ER 23:36 | DX: M54.9 Dorsalgia, unspecified (principal); Z53.21 Procedure and treatment not carried out due to patient leaving prior to being seen by health care provider ==

== ENCOUNTER 2023-07-04 18:09 | Emergency (ER) | payer SELFPAY ==
[~2023-07-04] VITALS: Ht 170.2 cm; Wt 67.1 kg
[~2023-07-04 18:09] MED LIST: AMOX500T3 PO; BENZ100C97 PO; PROM6.2520 PO
[2023-07-04] MEDS ORDERED: HYDROmorphone HCL 2 MG/ML VL/or syr IM ONE (19:15)
[2023-07-04 19:47] LABS: Basophils # (auto) 0.1 10 ^3/uL (0-0.2); Eosinophils # (auto) 0 10 ^3/uL (0-0.8); Eosinophils % (auto) 0.6 % (0.0-7.0); Hematocrit 45.3 % (41.0-53.0); Hemoglobin 15.3 g/dL (13.5-17.5); Lymphocytes # (auto) 1.4 10 ^3/uL (0.4-5.4); Lymphocytes % (auto) 26.3 % (10.0-50.0); Mean Corpuscular Hemoglobin 29.8 pg (28.0-32.0); Mean Corpuscular Hgb Conc. 33.7 g/dL (32.0-36.0); Mean Corpuscular Volume 88.4 fL (80.0-100.0); Monocytes # (auto) 0.5 10 ^3/uL (0-1.3); Monocytes % (auto) 9.5 % (0.0-12.0); Neutrophils # (auto) 3.4 10 ^3/uL (1.6-8.6); Neutrophils % (auto) 62.6 % (37.0-80.0); Nucleated Red Blood Cells % 0.9 %; Red Blood Cells 5.12 10^6/uL (4.5-5.90); Red Cell Distribution Width 13.4 % (11.8-14.3); White Blood Cell 5.4 10^3/uL (4.4-10.8)
[2023-07-04 20:03] LABS: INR 1.05 (0.9-1.15); Partial Thromboplastin Time 28.6 SEC (24.5-34.5)
[2023-07-04 20:04] LABS: Alanine Aminotransferase 42 U/L (7-40); Alkaline Phosphatase 55 U/L (46-116); Anion Gap 4 (5-15); Aspartate Aminotransferase 21 U/L (13-40); Bilirubin, Total 1.4 mg/dL (0.2-1.0); Blood Urea Nitrogen 7 mg/dL (9-23); Calcium 9.8 mg/dL (8.7-10.4); Carbon Dioxide 28 mmol/L (20-30); Chloride 110 mmol/L (98-107); Glucose 84 mg/dL (74-106); Lipase 36 U/L (12-53); Potassium 3.7 mmol/L (3.5-5.1); Sodium 142 mmol/L (136-145); Total Protein 7.5 g/dL (5.7-8.2)
[2023-07-04 20:11] LABS: Urine Bacteria FEW /hpf (None Seen); Urine Blood Negative /uL (Negative); Urine Clarity Clear (Clear); Urine Color Yellow (Yellow); Urine Protein, UAD Negative (Negative); Urine Specific Gravity 1.016 (1.001-1.035); Urine Sperm PRESENT /hpf (None Seen); Urine Urobilinogen Normal (Negative); Urine WBC <1 /hpf (0 - 3)
[2023-07-05 00:05] VITALS: BP 155/86; PULSE 75; RESP 16; TEMP 98.2; O2SAT 99
[2023-07-05] MEDS: ONDANSETRON ODT 4 MG TAB PO ONE (00:12)
[2023-07-05] MEDS: OXYCODONE W/ ACETAMINOPHEN 5/325MG TABLET PO ONE (00:13)
== END 2023-07-05 01:29 | disposition home or self-care (01) ==
LOC: ER 18:09
DX: R10.9 Unspecified abdominal pain (principal); F41.9 Anxiety disorder, unspecified; K21.9 Gastro-esophageal reflux disease without esophagitis; F17.210 Nicotine dependence, cigarettes, uncomplicated; F15.90 Other stimulant use, unspecified, uncomplicated; Z88.8 Allergy status to other drugs, medicaments and biological substances; Z79.899 Other long term (current) drug therapy
CPT/HCPCS: 36415; 80053; 81001; 83690; 84484; 85025; 85610; 85730; 99283; Q0162